=== PATIENT | female | born 1965 | race Caucasian/White ===

== ENCOUNTER 2017-11-29 19:40 | Inpatient (IN) | payer BC ==
[2017-11-29 22:57] LABS: ADD MAN DIFF? NO
[2017-11-29] MEDS: NITROGLYCERIN (SL) 0.4 MG TAB SL (23:20)
[2017-11-29] MEDS: ONDANSETRON (ODT) 4 MG TAB ODT (23:20)
[2017-11-29] MEDS: NITROGLYCERIN 2% 1 GM OINT PKT TD (23:21)
[2017-11-29] MEDS: ASPIRIN 325 MG TAB PO (23:21)
[2017-11-29 23:25] LABS: BASOPHILS % 0.4 % (0.0-2.0); EOSINOPHILS # 0.2 10^3/ul (0.0-0.5); EOSINOPHILS % 1.8 % (0.0-7.0); HEMATOCRIT 41.4 % (37.0-47.0); HEMOGLOBIN 14.3 g/dl (12.0-16.0); LYMPHOCYTES # 2.7 10^3/ul (0.8-2.9); LYMPHOCYTES % 26.6 % (15.0-51.0); MEAN CORPUSCULAR HEMOGLOBIN 30.1 pg (29.0-33.0); MEAN CORPUSCULAR HGB CONC 34.5 g/dl (32.0-37.0); MEAN CORPUSCULAR VOLUME 87.2 fl (82.0-101.0); MEAN PLATELET VOLUME 10.8 fl (7.4-10.4); MONOCYTE # 0.6 10^3/ul (0.3-0.9); MONOCYTES % 6.1 % (0.0-11.0); NEUTROPHIL # 6.5 10^3/ul (1.6-7.5); NEUTROPHILS % 64.7 % (39.0-77.0); PLATELET COUNT 275 10^3/UL (140-415); RED BLOOD COUNT 4.75 10^6/ul (4.20-5.40); RED CELL DISTRIBUTION WIDTH 12.5 % (11.5-14.5)
[2017-11-29 23:48] LABS: ALANINE AMINOTRANSFERASE 35 IU/L (13-69); ALBUMIN 4.9 g/dl (3.3-4.9); ALBUMIN/GLOBULIN RATIO 1.58; ALKALINE PHOSPHATASE 76 IU/L (42-121); ANION GAP 19 (8-16); ASPARTATE AMINO TRANSFERASE 23 IU/L (15-46); BILIRUBIN,INDIRECT 0.3 mg/dl (0-1.1); BILIRUBIN,TOTAL 0.3 mg/dl (0.2-1.3); BLOOD UREA NITROGEN 12 mg/dl (7-20); CALCIUM 9.7 mg/dl (8.4-10.2); CARBON DIOXIDE 23 mmol/L (21-31); CHLORIDE 106 mmol/L (97-110); CREATININE 0.51 mg/dl (0.44-1.00); GLUCOSE 96 mg/dl (70-220); POTASSIUM 4.2 mmol/L (3.5-5.1); SODIUM 144 mmol/L (135-144)
[2017-11-30 00:01] LABS: TROPONIN-I < 0.012 ng/ml (0.00-0.12)
[2017-11-30] MEDS ORDERED: ACETAMINOPHEN 325 MG TAB PO ×2 (01:30→04:00)
[2017-11-30] MEDS ORDERED: ONDANSETRON 4 MG INJ IV ×2 (01:30→04:00)
[2017-11-30] MEDS ORDERED: NACL 0.9% 3 ML SYG IV (04:00)
[2017-11-30] MEDS ORDERED: NITROGLYCERIN (SL) 0.4 MG TAB SL (04:00)
[2017-11-30] MEDS ORDERED: morphine 2 MG INJ IV (04:00)
[2017-11-30 07:15] LABS: ADD MAN DIFF? NO
[2017-11-30 07:20] LABS: WHITE BLOOD COUNT 8.5 10^3/ul (4.8-10.8)
[2017-11-30 07:20] LABS: BASOPHILS % 0.4 % (0.0-2.0); EOSINOPHILS # 0.2 10^3/ul (0.0-0.5); EOSINOPHILS % 1.8 % (0.0-7.0); HEMATOCRIT 38.4 % (37.0-47.0); HEMOGLOBIN 13.2 g/dl (12.0-16.0); LYMPHOCYTES # 1.8 10^3/ul (0.8-2.9); LYMPHOCYTES % 21.7 % (15.0-51.0); MEAN CORPUSCULAR HEMOGLOBIN 30.1 pg (29.0-33.0); MEAN CORPUSCULAR HGB CONC 34.4 g/dl (32.0-37.0); MEAN CORPUSCULAR VOLUME 87.7 fl (82.0-101.0); MEAN PLATELET VOLUME 10.9 fl (7.4-10.4); MONOCYTE # 0.5 10^3/ul (0.3-0.9); MONOCYTES % 5.4 % (0.0-11.0); NEUTROPHILS % 70.3 % (39.0-77.0); PLATELET COUNT 260 10^3/UL (140-415); RED BLOOD COUNT 4.38 10^6/ul (4.20-5.40); RED CELL DISTRIBUTION WIDTH 12.6 % (11.5-14.5)
[2017-11-30 07:38] LABS: ALANINE AMINOTRANSFERASE 34 IU/L (13-69); ALBUMIN 4.5 g/dl (3.3-4.9); ALBUMIN/GLOBULIN RATIO 1.66; ALKALINE PHOSPHATASE 66 IU/L (42-121); ANION GAP 18 (8-16); ASPARTATE AMINO TRANSFERASE 20 IU/L (15-46); BILIRUBIN,INDIRECT 0.5 mg/dl (0-1.1); BILIRUBIN,TOTAL 0.5 mg/dl (0.2-1.3); BLOOD UREA NITROGEN 10 mg/dl (7-20); CALCIUM 9.3 mg/dl (8.4-10.2); CARBON DIOXIDE 25 mmol/L (21-31); CHLORIDE 107 mmol/L (97-110); CREATINE KINASE 134 IU/L (23-200); CREATININE 0.58 mg/dl (0.44-1.00); GLUCOSE 114 mg/dl (70-220); POTASSIUM 4.3 mmol/L (3.5-5.1); SODIUM 146 mmol/L (135-144); TOTAL PROTEIN 7.2 g/dl (6.1-8.1)
[2017-11-30 07:50] LABS: CK INDEX 1.6; CK-MB 2.15 ng/ml (0.0-2.4)
[2017-11-30 07:51] LABS: TROPONIN-I < 0.012 ng/ml (0.00-0.12)
[2017-11-30] MEDS: ASPIRIN 81 MG TAB PO (08:14)
[2017-11-30] MEDS: ENOXAPARIN 40 MG/0.4 ML SYG SC (08:15)
[2017-11-30 09:51] LABS: CREATINE KINASE 126 IU/L (23-200)
[2017-11-30] MEDS: METOPROLOL 25 MG TAB PO (10:00)
[2017-11-30 10:04] LABS: CK INDEX 1.5; CK-MB 1.89 ng/ml (0.0-2.4); TROPONIN-I < 0.012 ng/ml (0.00-0.12)
[2017-11-30] MEDS: AMLODIPINE 5 MG TAB PO (14:23)
[2017-12-02] MEDS ORDERED: INFLUENZA VIRUS VACCINE 0.5 ML (DISPENSING) IM* (09:00)
== END 2017-11-30 17:26 | disposition home or self-care (01) | DRG 313 ==
LOC: MS3 11-30 01:28 → E/R 19:40
DX: R07.9 Chest pain, unspecified (principal); I16.0 Hypertensive urgency; R73.03 Prediabetes
CPT/HCPCS: 36415; 71045; 80053; 82550; 82553; 84484; 85025; 93005; 93306; 99285-25